=== PATIENT | male | born 1980 | race Hispanic/Latino ===

== ENCOUNTER 2022-04-19 07:16 | Emergency (ER) | payer BC ==
[~2022-04-19] VITALS: Ht 165.1 cm; Wt 99.8 kg
[2022-04-19 07:21] VITALS: BP 153/93
[2022-04-19] MEDS ORDERED: ONDANSETRON 4MG INJ ONE (09:36)
[2022-04-19] MEDS ORDERED: MORPHINE 4 MG SYG ONE (09:37)
[2022-04-19] MEDS ORDERED: BACI30OI6 TP (09:38)
== END 2022-04-19 09:50 | disposition home or self-care (01) ==
LOC: EDH 07:16
DX: S31.21XA Laceration without foreign body of penis, initial encounter (principal); I10 Essential (primary) hypertension; E11.9 Type 2 diabetes mellitus without complications; X58.XXXA Exposure to other specified factors, initial encounter; Y93.89 Activity, other specified; Y92.89 Other specified places as the place of occurrence of the external cause; Y99.8 Other external cause status
CPT/HCPCS: 99282; J2270; J2405